=== PATIENT | female | born 1960 | race Two or more races ===

== ENCOUNTER 2020-01-10 19:30 | Emergency (ER) | payer OTHER ==
[2020-01-10 20:07] VITALS: BP 162/64; PULSE 92; TEMP 98.6; BMI 25.7
[2020-01-10] MEDS ORDERED: KETOROLAC TROMETHAMINE 30 MG/1 ML VIAL IVPUSH ONE (20:58)
[2020-01-10] MEDS ORDERED: KETOROLAC TROMETHAMINE 15 MG/ML VIAL ONE ×2 (21:06→22:45)
[2020-01-10 21:29] LABS: HEMATOCRIT 44.1 % (32.4-45.2); HEMOGLOBIN 14.6 GM/dl (10.7-15.3); MCH 28.5 pg (25.7-33.7); MEAN CELL VOLUME 86.2 fl (80-96); MEAN PLT VOLUME 7.7 fl (7.5-11.1); PLATELET COUNT 281 K/MM3 (134-434); RBC 5.12 M/mm3 (3.60-5.2); RDW 12.8 % (11.6-15.6); WHITE BLOOD COUNT 7.9 K/mm3 (4.0-10.8)
[2020-01-10 21:53] LABS: PLATELET ESTIMATE ADEQUATE
[2020-01-10 22:06] LABS: ALBUMIN 4.2 g/dl (3.4-5.0); BILIRUBIN,TOTAL 0.6 mg/dl (0.2-1); CALCIUM 8.8 mg/dl (8.5-10); CREATININE 0.5 mg/dl (0.55-1.3); POTASSIUM 3.4 mmol/L (3.5-5.1); TOT PROT 7.3 g/dl (6.4-8.2)
[2020-01-10] MEDS ORDERED: KETOROLAC TROMETHAMINE 15 MG/ML VIAL IVPUSH ONE (22:43)
--- NOTE | 2020-01-10 23:03 | PDOC ---
Documentation entered by Norma Frankel SCRIBE, acting as scribe for Rachele Stewart MD. Rachele Stewart MD: This documentation has been prepared by the jimmieibeJostin Lincy, SCRIBE, under my direction and personally reviewed by me in its entirety. I confirm that the documentation accurately reflects all work, treatment, procedures, and medical decision making performed by me. History of Present Illness - General Chief Complaint: Pain, Acute Stated Complaint: RIGHT FLANK PAIN Time Seen by Provider: 01/10/20 20:25 History Source: Patient Exam Limitations: No Limitations - History of Present Illness Initial Comments: 01/10/20 21:00 The patient is a 59-year-old female with a past medical history significant for HTN, GERD, s/p cardiac stents (5 years ago, in [place]) who presents to the emergency department with five days of right flank pain. The patient presents with intermittent episodes of right-sided flank pain for the past five days, that intensified in severity tonight. The patient reports the pain is nonradiating and pleuritic in quality, thats aggravated after eating. The patient has been taking Ibuprofen for the pain, without relief, the last dose this morning. Denies fever, shortness of breath, nausea, vomiting, diarrhea. The patient reports she is eating and drinking per usual and had a normal bowel movement earlier today. Denies a personal or family history of kidney stones or gallstones. Denies recent travel. Allergies: NKA Social history: Denies the use of tobacco, alcohol or recreational drugs. Surgical history: Stents PCP: Dr. Tawny Bautista. Past History - Past Medical History Allergies/Adverse Reactions: Allergies Allergy/AdvReac Type Severity Reaction Status Date / Time No Known Allergies Allergy Unverified 01/10/20 20:05 Home Medications: Ambulatory Orders Acetaminophen [Acetaminophen ER] 650 mg PO TID PRN 01/10/20 Amlodipine Besylate [Norvasc -] 5 mg PO DAILY 01/10/20 Aspirin [Aspirin EC] 81 mg PO DAILY 01/10/20 Atenolol [Tenormin] 50 mg PO DAILY 01/10/20 Clopidogrel Bisulfate [Clopidogrel] 75 mg PO DAILY 01/10/20 Diclofenac Sodium 75 mg PO BID PRN #20 tablet. 01/10/20 Omeprazole Magnesium 20 mg PO HS 01/10/20 Orphenadrine Citrate [Orphenadrine Citrate ER] 50 mg PO TID PRN 01/10/20 Pantoprazole Sodium [Protonix -] 20 mg PO DAILY #20 tablet.ec 01/10/20 Rosuvastatin [Crestor -] 10 mg PO DAILY 01/10/20 Cardiac Disorders: Yes (STENT X1) COPD: No GI Disorders: Yes (GERD) HTN: Yes Hypercholesterolemia: Yes - Immunization History Immunization Up to Date: Yes - Psycho Social/Smoking Cessation Hx Smoking History: Never smoked Hx Alcohol Use: No Drug/Substance Use Hx: No Review of Systems - Review of Systems Able to Perform ROS?: Yes Comments:: 01/10/20 21:01 CONSTITUTIONAL: Pt denies Fever, Chills, weakness. HEENT: denies vision changes, sore throat RESPIRATORY: +cough. Denies sob, hemoptysis CARDIAC: denies chest pain, palpitations, lightheadedness, leg swelling ABD/GI: +epigastric pain, right flank pain. denies nausea, vomiting, blood per rectum, melena, diarrhea : denies dysuria, frequency, discharge MSK: denies back pain, joint swelling SKIN: denies bruising, erythema, rash NEUROLOGICAL: denies headache, numbness, focal weakness, tingling, ataxia, weakness HEMATOLOGICAL: denies anemia, easy bruising, easy bleeding *Physical Exam - Vital Signs Last Vital Signs Temp Pulse Resp BP Pulse Ox 98.6 F 92 H 18 162/64 99 01/10/20 19:35 01/10/20 19:35 01/10/20 19:35 01/10/20 19:35 01/10/20 19:35 - Physical Exam 01/10/20 21:05 GENERAL: The patient is awake, alert, and fully oriented, in no acute distress. HEAD: Normal with no signs of trauma. EYES: Pupils equal, round and reactive to light, extraocular movements intact, sclera anicteric, conjunctiva clear with no pallor. ENT: Ears normal, nares patent, oropharynx clear without exudates. Moist mucous membranes NECK: Normal range of motion, supple without lymphadenopathy, JVD, or masses. LUNGS: Breath sounds equal, clear to auscultation bilaterally. No wheeze/ crackles. HEART: +3/6 holosystolic murmur throughout the precordium. Regular rate and rhythm, normal S1 and S2 without rub. ABDOMEN: normal BS, soft, nondistended, mild right upper quadrant tenderness without clear murphys sign, right flank and right CVA tenderness, otherwise, no abdominal tenderness, no masses, rebound or guarding. EXTREMITIES: Normal range of motion, no edema. No clubbing or cyanosis. No cords, erythema, or tenderness. NEUROLOGICAL: Cranial nerves II through XII grossly intact. Normal speech, normal gait. PSYCH: Normal mood, normal affect. SKIN: Warm, Dry, normal turgor, no rashes or lesions noted. ED Treatment Course - LABORATORY CBC & Chemistry Diagram: 01/10/20 21:15 01/10/20 21:35 - ADDITIONAL ORDERS Additional order review: Laboratory Results 01/10/20 20:00 Urine Color Yellow Urine Appearance Clear Urine pH 7.0 Urine Protein Negative Urine Glucose (UA) Negative Urine Ketones Negative Urine Blood Negative Urine Nitrite Negative Urine Bilirubin Negative Urine Urobilinogen 0.2 Ur Leukocyte Esterase 1+ ED Progress Note - Progress Note Progress Note: Twelve-lead electrocardiogram performed: Normal sinus rhythm at 83/minute; left bundle branch block is present; left axis deviation present; no acute ST or T wave abnormalities are seen. No acute cardiac arrhythmias evident. Medical Decision Making - Medical Decision Making As noted above, this 59-year-old woman with a history of HTN/HLD/CAD presents with 5-day history of right flank/right CVA pain. No history of trauma or overuse. Patient notes some increase in pain after eating; no previous history of this type of pain. No nausea/vomiting/fever/chills reported. She has been able to eat and drink normally. Patient had previously been on medication for acid reflux (this medication had been prescribed in [place] but when she moved here from there 5 months ago, she stopped taking it). Exam as noted CBC/chemistry profile/urinalysis sent. Toradol 15 mg IV administered for analgesia Although microscopic portion of the UA reveals only 02 RBCs, because of significant CVA tenderness, renal stone protocol noncontrast CT performed to evaluate for kidney stone/ureteral stone/hydronephrosis. Also, gallbladder will be visualized since there is the possibility of biliary tract etiology of pain. Renal stone protocol CT interpreted by Dr. Zamora of the radiology staff: Negative for evidence of renal pathology/stones, abnormality of gallbladder or biliary tract. Only significant abnormality noted were small splenic artery aneurysms. Since patient had no significant pain or tenderness in the area of the splenic artery aneurysm, this was not felt to be an acute problem. CBC and chemistry profile were essentially normal Results discussed with the patient and family member: Patient had partial relief of her pain with 15 mg Toradol IV. Since patient did not have her diagnostic lab work or radiology studies at the time the Toradol was given, half dose was administered. Since she has no evidence of renal failure and there is no other contraindication to full dose of Toradol, additional 15 mg Toradol IV given. Etiology of the patient's pain is somewhat of unclear. Musculoskeletal strain is a possibility. In any case, she should follow-up with her PMD, Dr. Bautista on January 13. Prescriptions for diclofenac 75 mg twice a day as needed for pain to be taken with food and for Protonix 20 mg daily (since patient apparently was on PPI prior to arrival here in this country) sent to her pharmacy. If she has worsening of her pain or develops vomiting/fever, she should return to the emergency room Discharge - Discharge Information Problems reviewed: Yes Clinical Impression/Diagnosis: Right flank pain Condition: Stable Disposition: HOME - Additional Discharge Information Prescriptions: Diclofenac Sodium 75 mg PO BID PRN #[address] GUERRERO Reason: Pain Pantoprazole Sodium [Protonix -] 20 mg PO DAILY #20 tablet.ec - Follow up/Referral Referrals: Kaity Bautista MD [Primary Care Provider] - 3 days - Patient Discharge Instructions Patient Printed Discharge Instructions: DI for Flank Pain Additional Instructions: Protonix 20 mg daily for stomach acid Diclofenac 75 mg twice a day as needed for pain (take with food) Follow-up with on January 13 Return to ER if pain worsens or vomiting/fever develops - Post Discharge Activity
--- NOTE | 2020-01-13 10:28 | EKG ---
Test Reason : Blood Pressure : / mmHG Vent. Rate : 083 BPM Atrial Rate : 083 BPM P-R Int : 140 ms QRS Dur : 136 ms QT Int : 418 ms P-R-T Axes : 002 -30 061 degrees QTc Int : 491 ms SINUS RHYTHM WITH PREMATURE ATRIAL COMPLEXES WITH ABERRANT CONDUCTION LEFT AXIS DEVIATION LEFT BUNDLE BRANCH BLOCK ABNORMAL ECG NO PREVIOUS ECGS AVAILABLE Confirmed by Chilo Babin ([id number]) on 01/13/2020 10:28:05 AM Referred By: MD REED Confirmed By:Chilo Babin
== END 2020-01-10 22:59 | disposition home or self-care (01) ==
LOC: FER 19:30 → SUPCPDRO 19:30 → FER 22:59
PROC: 3E0333Z Introduction of Anti-inflammatory into Peripheral Vein, Percutaneous Approach (ICD-10-PCS; principal; 2020-01-10)
DX: R10.9 Unspecified abdominal pain (principal); I10 Essential (primary) hypertension; K21.9 Gastro-esophageal reflux disease without esophagitis; E78.00 Pure hypercholesterolemia, unspecified; Z95.5 Presence of coronary angioplasty implant and graft
CPT/HCPCS: 36415; 74176-TC; 80053; 81003; 81015; 82550; 82553; 84484; 85025; 87086; 93005; 99285-25

== ENCOUNTER 2024-01-12 09:34 | Emergency (ER) | payer OTHER ==
[2024-01-12 09:59] VITALS: BP 129/52; PULSE 75; RESP 16; TEMP 97.9; BMI 25.7
[2024-01-12] MEDS ORDERED: IBUPROFEN 600 MG TABLET (FP) PO ONE (10:59)
[2024-01-12] MEDS: IBUPROFEN 600 MG TABLET (FP) PO ONE (11:02)
== END 2024-01-12 11:24 | disposition home or self-care (01) ==
LOC: FER 09:34
DX: M25.511 Pain in right shoulder (principal); M25.512 Pain in left shoulder; M79.602 Pain in left arm; M79.601 Pain in right arm
CPT/HCPCS: 99283-25